=== PATIENT | female | born 1980 | race Caucasian/White ===

== ENCOUNTER 2022-06-08 13:35 | Emergency (ER) | payer SELFPAY ==
[~2022-06-08] VITALS: Ht 157.5 cm; Wt 67.7 kg
[2022-06-08 13:37] VITALS: BP 178/97
== END 2022-06-08 16:18 | disposition left against medical advice (07) ==
LOC: M ED 13:35
DX: Z53.29 Procedure and treatment not carried out because of patient's decision for other reasons (principal)